=== PATIENT | male | born 1995 | race Caucasian/White ===

== ENCOUNTER 2021-04-21 18:06 | Emergency (ER) | payer SELFPAY ==
[~2021-04-21] VITALS: Ht 177.8 cm; Wt 71.2 kg
[2021-04-21] MEDS ORDERED: ZITHROMAX250 MG PO (18:56)
== END 2021-04-21 19:41 | disposition home or self-care (01) ==
LOC: FSED 18:25
DX: R50.9 Fever, unspecified (principal); U07.1 COVID-19; J20.9 Acute bronchitis, unspecified; J02.9 Acute pharyngitis, unspecified; R05.9 Cough, unspecified
CPT/HCPCS: 83518; 87400; 99283; U0002